=== PATIENT | male | born 1940 | race Caucasian/White ===

== ENCOUNTER 2016-12-05 12:38 | Inpatient (IN) | payer OTHER ==
[~2016-12-05] VITALS: Ht 182.9 cm; Wt 92.6 kg
[~2016-12-05 12:38] MED LIST: ACETAMINOPHEN325 M1 PO; ACTOS45 MG PO; CLARITIN,ALAVAR10 MG PO; COLCHICINE,COL0.6 MG PO; COLCRYS0.6 MG PO; Claritin,Alavart PO; Dulcolax PO; ELAVIL10 MG PO; FORTAMET1000 M1 PO; GLIPIZIDE ER2.5 MG PO; GLIPIZIDE XL10 M1 PO; GLUCOPHAGE1000 M1 PO; GLUCOTROL XL2.5 MG PO; GLYBURIDE2.5 MG PO; Glucophage PO; LEVAQUIN500 MG PO; LEVEMIR FL100 UNIT/1 SC; LEVEMIR FL100 UNITS/ SC; LEVEMIR100 UNIT/1 SC; LEVEMIR100 UNIT/1 SQ; LEVEMIR100 UNIT/2 SC; LIDODERM 5% P1 PATCH TD; LISINOPRIL40 MG PO; LUNESTA2 MG PO; MESTINON60 MG PO; Mestinon PO; NUCYNTA50 MG PO; Nucynta PO; PLAVIX75 MG PO; PRAVACHOL40 M1 PO; PRAVACHOL40 MG PO; PRAVASTATIN SOD40 MG PO; PRINIVIL20 MG PO; PROTONIX40 MG PO; Protonix PO; RESTORIL15 MG PO; Remove Lidoderm Patc TD; SENOKOT S,PE1 TABLET PO; THERAGRAN1 TABLET PO; Tylenol Regular Stre PO; VESICARE5 MG PO; WYGESIC,DARV1 TABLET PO; ZESTRIL40 MG PO; ZOLOFT25 MG PO; Zocor PO
[2016-12-05 13:22] LABS: HEMATOCRIT 53.4 % (38.0-50.0); MCH 29.1 PG (29.0-34.0); MCHC 31.1 G/DL (30.0-36.0); MCV 93.7 FL (86-99); MEAN PLAT.VOLUME 9.3 uM^3 (9.0-12.4); PLATELET COUNT 263 K/uL (156-360); RBC DIS.WIDTH-CV 13.6 % (11.8-14.6); RBC DIS.WIDTH-SD 47.1 % (39-53); WHITE BLOOD COUNT 12.9 K/uL (4.1-10.2)
[2016-12-05 13:30] LABS: CHLORIDE 102 mEq/L (99-109); POTASSIUM 5.3 mEq/L (3.7-5.4); SODIUM 135 mEq/L (136-147)
[2016-12-05 13:32] LABS: GLUCOSE 198 mg/dL (70-99)
[2016-12-05 13:33] LABS: ANION GAP 9 MEQ/L (2-14)
[2016-12-05 13:36] LABS: GFR ESTIMATE (CALCULATED) 53 mL/min/
[2016-12-05 13:37] LABS: UREA NITROGEN (BUN) 22 mg/dL (9-23)
[2016-12-05 14:31] LABS: ADD MIUA? NO; BILIRUBIN NEGATIVE; BLOOD NEGATIVE; COLOR YELLOW ((YELLOW)); GLUCOSE (STRIP) NEGATIVE; KETONES NEGATIVE; LEUKOCYTES NEGATIVE; NITRITE NEGATIVE; PROTEIN (STRIP) NEGATIVE; SPECIFIC GRAVITY 1.013 (1.000-1.030); UCUL ADDED? NO; UROBILINOGEN 0.2 MG/DL (0.2-1.0)
[2016-12-05] MEDS ORDERED: NORTRIPTYLINE H25 MG PO (15:57)
[2016-12-05] MEDS ORDERED: PROTONIX40 MG PO (15:58)
[2016-12-05] MEDS ORDERED: KEPPRA500 MG PO ×2 (15:59)
[2016-12-05 19:53] VITALS: BP 163/74
[2016-12-05 21:16] LABS: POINT-OF-CARE METER ID UU13113717
[2016-12-06] VITALS (7 sets, daily range): BP systolic 118–177; BP diastolic 62–76
[2016-12-06 12:05] LABS: POINT-OF-CARE METER ID UU14174225
[2016-12-06 16:29] LABS: POINT-OF-CARE METER ID UU14174225
[2016-12-07 04:12] VITALS: BP 129/66
[2016-12-07 08:09] VITALS: BP 111/64
[2016-12-07 12:25] VITALS: BP 128/68
[2016-12-07 17:36] VITALS: BP 138/71
[2016-12-07 19:42] VITALS: BP 120/66
[2016-12-07 21:13] LABS: POINT-OF-CARE METER ID UU13113717
[2016-12-07 23:40] VITALS: BP 165/72
[2016-12-08 00:46] VITALS: BP 155/72
[2016-12-08 03:32] VITALS: BP 129/61
[2016-12-08 08:13] LABS: ALKALINE PHOSPHATASE 61 IU/L (3-129); ANION GAP 7 MEQ/L (2-14); CHLORIDE 109 MEQ/L (99-109); GFR ESTIMATE (CALCULATED) > 59 mL/min/; GLUCOSE 119 mg/dL (70-99); SAMPLE HEMOLYSIS CHECK 0; SAMPLE ICTERIC CHECK 0; SAMPLE LIPEMIA CHECK 0; SODIUM 140 MEQ/L (136-147); TOTAL BILIRUBIN 0.3 MG/DL (0.0-1.0); UREA NITROGEN (BUN) 21 mg/dL (9-23)
[2016-12-08 08:15] VITALS: BP 153/70
[2016-12-08 11:50] VITALS: BP 123/62
[2016-12-08] MEDS ORDERED: PREDNISONE20 MG PO (12:40)
[2016-12-08 16:32] VITALS: BP 155/63
[2016-12-08 16:40] LABS: POINT-OF-CARE METER ID UU14174225
== END 2016-12-08 18:17 | DRG 554 ==
LOC: EME 12:38 → EDOF 16:30 → 5SOUTH 16:30
PROVIDERS: Emergency Medicine; Hospitalist; Internal Medicine
DX: M1A.09X0 Idiopathic chronic gout, multiple sites, without tophus (tophi) (principal); I69.351 Hemiplegia and hemiparesis following cerebral infarction affecting right dominant side; N17.9 Acute kidney failure, unspecified; E11.9 Type 2 diabetes mellitus without complications; E78.5 Hyperlipidemia, unspecified; G40.909 Epilepsy, unspecified, not intractable, without status epilepticus; G70.00 Myasthenia gravis without (acute) exacerbation; I10 Essential (primary) hypertension; K21.9 Gastro-esophageal reflux disease without esophagitis; M19.90 Unspecified osteoarthritis, unspecified site; J44.9 Chronic obstructive pulmonary disease, unspecified; I67.2 Cerebral atherosclerosis; R54 Age-related physical debility; R32 Unspecified urinary incontinence; R26.2 Difficulty in walking, not elsewhere classified; M62.81 Muscle weakness (generalized); I69.320 Aphasia following cerebral infarction; Z79.4 Long term (current) use of insulin; Z96.652 Presence of left artificial knee joint; Z88.5 Allergy status to narcotic agent; Z88.6 Allergy status to analgesic agent; Z98.1 Arthrodesis status; Z96.642 Presence of left artificial hip joint; Z87.442 Personal history of urinary calculi
CPT/HCPCS: 70450; 71020; 73560; 80048; 80053; 81003; 82948; 85027; 93005; 97530 GO; 99281; 99285; G8987 GO CL; G8988 GO CK; J1650; J1815; J7030; J7512